=== PATIENT | female | born 2000 | race Caucasian/White ===

== ENCOUNTER → 2021-02-27 10:37 | Outpatient (CLI) | payer BC, SELFPAY ==
[2021-02-27 10:52] LABS: Coronavirus 19, PCR Not Detected (NotDetected); Influenza A, PCR Not Detected (NotDetected); Influenza B, PCR Not Detected (NotDetected)
== END ==
PROVIDERS: PCP Family Medicine; Visit Provider Nurse Practitioner
DX: Z20.822 Contact with and (suspected) exposure to COVID-19 (principal)
CPT/HCPCS: C9803; U0003; U0005

== ENCOUNTER → 2021-05-18 13:41 | Outpatient (CLI) | payer OTHER, SELFPAY | PROVIDERS: PCP Family Medicine; Visit Provider Nurse Practitioner | DX: Z20.822 Contact with and (suspected) exposure to COVID-19 (principal) | CPT/HCPCS: C9803; U0003; U0005 ==

== ENCOUNTER → 2021-07-13 13:31 | Outpatient (CLI) | payer OTHER, SELFPAY ==
[2021-07-12 17:40] LABS: Basophils # 0.1 K/mm3 (0-0.2); Basophils % 0.8 % (0.1-2.0); Eosinophils # 0.1 K/mm3 (0.0-0.4); Eosinophils % 1.5 % (0.1-12.0); Hematocrit 43.4 % (37.0-47.0); Hemoglobin 13.7 g/dL (12.2-16.2); Lymphocytes % 23.4 % (10-50); Mean Corpuscular HGB Conc 31.7 g/dL (31.8-35.4); Mean Corpuscular Hemoglobin 29.2 pg (27.0-31.2); Mean Platelet Volume 10.2 fl (7.4-10.4); Monocytes # 0.3 K/mm3 (0.1-1.0); Monocytes % 3.9 % (1.7-9.3); Neutrophils # 6.1 K/mm3 (1.8-7.8); Neutrophils % 70.3 % (37.0-80.0); Platelet Count 193 K/mm3 (142-424); Red Blood Count 4.72 M/mm3 (4.20-5.40); Red Cell Distribution Width 12.5 % (11.5-17.5); White Blood Count 8.7 K/mm3 (4.8-10.8)
[2021-07-12 17:43] LABS: Alanine Aminotransferase 21 U/L (12-78); Albumin Level 4.9 g/dl (3.5-5.0); Alkaline Phosphatase 89 U/L (38-126); Amylase 74 U/L (30-110); Anion Gap 14.2 mEq/L (5-15); Aspartate Amino Transferase 31 U/L (14-36); Bilirubin,Total 0.5 mg/dl (0.2-1.3); Blood Urea Nitrogen 12 mg/dl (7-17); Calcium 9.4 mg/dl (8.4-10.2); Carbon Dioxide 25 mmol/L (22.0-30.0); Chloride 101 mmol/L (98-107); Chol/HDL Ratio 2.5 (1-3.5); Cholesterol 151 mg/dl (140-200); Estimated Glomerular Filt Rate 126 ml/min (>60); GFR (African American) 153 ML/MIN (>60); Globulin 2.5 g/dL (1.3-3.2); Glucose 74 mg/dl (74-100); HDL Cholesterol 60 mg/dl (40-60); Lipase 76 U/L (23-300); Potassium 4.2 mmoL/L (3.5-5.1); Sodium 136 mmol/L (136-145); Total Protein,Serum 7.4 g/dl (6.3-8.2); Triglycerides 100 mg/dl (30-150); VLDL Cholesterol 20 mg/dL (0-40)
[2021-07-12 17:54] LABS: Direct LDL Cholesterol 66.91 mg/dL (100-129)
[2021-07-12 17:59] LABS: 25-OH Vitamin D, Total 18.1 ng/mL (30-100)
[2021-07-12 18:06] LABS: HCG,Quantitative < 2 mIU/ml (0-5.42)
[2021-07-12 18:14] LABS: Thyroid Stimulating Hormone 0.45 uIU/mL (0.465-4.68)
== END ==
PROVIDERS: Visit Provider Physician Assistant
DX: R14.0 Abdominal distension (gaseous) (principal); R10.9 Unspecified abdominal pain; R10.13 Epigastric pain; E55.9 Vitamin D deficiency, unspecified
CPT/HCPCS: 80053; 80061; 82150; 82306; 83690; 84443; 84702; 85025

== ENCOUNTER → 2021-07-14 08:48 | Outpatient (CLI) | payer OTHER, SELFPAY ==
--- NOTE | 2021-07-14 08:49 | US_ITS ---
FINAL REPORT CLINICAL HISTORY: ruq pain FINDINGS: Sonographic images of the right upper quadrant were obtained. The pancreas is partially obscured.The liver has an unremarkable appearance. There is sludge within the gallbladder without evidence of gallstones. There is no evidence of biliary ductal dilatation.The common duct measures 3 mm. Limited images of the right kidney are unremarkable. IMPRESSION: Sludge within the gallbladder without evidence of gallstones. Reviewed, Interpreted and Dictated by Ned Fields III, MD Transcribed by Nara Bentley Authenticated by Ned Fields III, MD on 07/14/2021 09:54:11 AM [facility]
== END ==
PROVIDERS: PCP Physician Assistant; Visit Provider Physician Assistant
DX: R10.11 Right upper quadrant pain (principal)
CPT/HCPCS: 76705

== ENCOUNTER → 2021-07-27 10:16 | Outpatient (CLI) | payer OTHER, SELFPAY ==
--- NOTE | 2021-07-27 10:21 | NM_ITS ---
FINAL REPORT CLINICAL HISTORY: Sludge within the gallbladder 10:30 am 8.13mci Tc Choletec injected into lt ant pt drank ensure at 11:40 am no pain after drinking ensure FINDINGS: HEPATOBILIARY SCAN WITH ENSURE Following intravenous administration of approximately 8.13 of technetium Choletec, multiple scintigraphic images were obtained. The hepatic parenchymal phase shows homogeneous distribution of the tracer throughout the liver. Prompt appearance of tracer is noted in the intrahepatic and extrahepatic biliary systems. The gallbladder visualizes normal. Biliary to bowel transit is within normal limits. Following ingestion of 8 oz of Ensure, gallbladder ejection fraction is estimated to be 67 %. IMPRESSION: Normal gallbladder ejection fraction of 67 %. Reviewed, Interpreted and Dictated by Roman Al MD Transcribed by Abiodun Cope Authenticated by Roman Al MD on 07/27/2021 02:17:24 PM [facility]
== END ==
PROVIDERS: PCP Physician Assistant; Visit Provider Physician Assistant
DX: K82.8 Other specified diseases of gallbladder (principal)
CPT/HCPCS: 78227; A9537

== ENCOUNTER 2021-07-28 05:48 | Emergency (ER) | payer OTHER, SELFPAY ==
[2021-07-28] VITALS (7 sets, daily range): BP systolic 104–120; BP diastolic 62–78; PULSE 71–92; RESP 16–18; TEMP 36.6; O2SAT 98–100; BMI 24.0
--- NOTE | 2021-07-28 05:57 | ECG_ITS ---
APPROVED REPORT Exam: Resting ECG HR:79 bpm ECG Measurements Heart Rate 79 AXES IL 147 P 71 QRSd 78 QRS 84 QT 358 T 54 QTc 393 Conclusion SINUS RHYTHM NORMAL ECG UNCONFIRMED REPORT Electronically signed by : Kade Lord MD 07/28/2021 19:37:25
--- NOTE | 2021-07-28 06:04 | PC.NURSE ---
roll forming supervisor gave report to this RN. S, Call RN states pt had a syncopal episode on 2nd floor in the hallway. This was witnessed by another er registrar, Laila. @ 0930 her FS was 105 and BP 108/65, HR 83, 99% room air. Witness and pt deny fall, and state she was assisted to the ground.
--- NOTE | 2021-07-28 06:13 | XR_ITS ---
FINAL REPORT CLINICAL HISTORY: syncope FINDINGS: TWO VIEWS OF THE CHEST The heart is normal in size. The mediastinum is unremarkable. The lungs are clear. There is no pneumothorax. IMPRESSION: No acute cardiopulmonary process. Reviewed, Interpreted and Dictated by Roman Al MD Transcribed by Marsha Nation Authenticated by Roman Al MD on 07/28/2021 08:40:58 AM [facility]
--- NOTE | 2021-07-28 06:19 | CT_ITS ---
FINAL REPORT TECHNIQUE: Axial CT images were performed through the head. Coronal reformatted images were submitted. This study was performed with techniques to keep radiation doses as low as reasonably achievable (ALARA). Individualized dose reduction techniques using automated exposure control or adjustment of mA and/or kV according to the patient's size were employed. CLINICAL HISTORY: pt was drawing a pt's blood and started seeing spots and then passed out FINDINGS: The ventricles are normal in size. There is no evidence of hemorrhage. There is no mass or edema identified. There is no abnormal extra-axial fluid seen. There is a retention cyst or polyp in the left maxillary sinus. There is minimal mucosal periosteal thickening in the right maxillary sinus. IMPRESSION: No acute intracranial process. Reviewed, Interpreted and Dictated by Roman Al MD Transcribed by Marsha Nation Authenticated by Roman Al MD on 07/28/2021 08:40:59 AM [facility]
--- NOTE | 2021-07-28 06:23 | PC.NURSE ---
obtaining orthostatic bp
[2021-07-28 06:29] LABS: Microscopic, Urine URINE MICROSCOPIC (MICROSCOPIC)
[2021-07-28 06:33] LABS: Basophils # 0.1 K/mm3 (0-0.2); Basophils % 1.2 % (0.1-2.0); Eosinophils # 0.2 K/mm3 (0.0-0.4); Eosinophils % 2.3 % (0.1-12.0); Hematocrit 44.6 % (37.0-47.0); Hemoglobin 14.7 g/dL (12.2-16.2); Lymphocytes # 2.4 K/mm3 (0.7-4.5); Lymphocytes % 27.1 % (10-50); Mean Corpuscular HGB Conc 32.9 g/dL (31.8-35.4); Mean Corpuscular Hemoglobin 29.7 pg (27.0-31.2); Mean Corpuscular Volume 90.1 fl (81-99); Mean Platelet Volume 9.6 fl (7.4-10.4); Monocytes # 0.5 K/mm3 (0.1-1.0); Monocytes % 5.4 % (1.7-9.3); Neutrophils # 5.7 K/mm3 (1.8-7.8); Platelet Count 261 K/mm3 (142-424); Red Blood Count 4.95 M/mm3 (4.20-5.40); Red Cell Distribution Width 12.5 % (11.5-17.5)
[2021-07-28 06:45] LABS: Appearance,Urine SL CLOUDY (Clear); Blood, Urine TRACE-I (Negative); Color,Urine DK YELLOW (Yellow); Glucose,Urine (UA) Negative (Negative); Ketones,Urine TRACE (Negative); Leukocyte Esterase,Urine Negative (Negative); Nitrate,Urine Negative (Negative); PH,Urine 5.5 (5.0-8.5); Protein,Urine TRACE (Negative); Specific Gravity, Urine >= 1.030 (1.005-1.030); Urobilinogen,Urine 0.2 EU/dl (0.2)
[2021-07-28 06:49] LABS: Alanine Aminotransferase 13 U/L (12-78); Albumin Level 4.6 g/dl (3.5-5.0); Albumin/Globulin Ratio 1.7 (1.1-1.8); Alkaline Phosphatase 75 U/L (38-126); Anion Gap 11.7 mEq/L (5-15); Aspartate Amino Transferase 23 U/L (14-36); Bilirubin,Total 0.7 mg/dl (0.2-1.3); Blood Urea Nitrogen 8 mg/dl (7-17); Calcium 9.3 mg/dl (8.4-10.2); Carbon Dioxide 27 mmol/L (22.0-30.0); Chloride 103 mmol/L (98-107); Creatinine Clearance Estimated 112 mL/min (50-200); Estimated Glomerular Filt Rate 91 ml/min (>60); GFR (African American) 110 ML/MIN (>60); Globulin 2.7 g/dL (1.3-3.2); Glucose 130 mg/dl (74-100); Potassium 3.7 mmoL/L (3.5-5.1); Sodium 138 mmol/L (136-145); Total Protein,Serum 7.3 g/dl (6.3-8.2)
[2021-07-28 06:54] LABS: Bilirubin,Urine Negative (Negative)
[2021-07-28 06:55] LABS: C-Reactive Protein 0.3 mg/L (0-4)
[2021-07-28 07:04] LABS: HCG Qualitative, Serum Negative (Negative)
[2021-07-28 07:07] LABS: RBC,Urine Occasional #/hpf (0-3)
[2021-07-28 07:08] LABS: Bacteria,Urine 2+ /lpf
--- NOTE | 2021-07-28 07:16 | HMH.EDSYNC ---
ED Disposition Clinical Impression: Vasovagal syncope Disposition: Home, Self-Care Condition on Discharge: Good Instructions: DI for Syncope in Adults (Fainting) Additional Instructions: fluids and see pcp for follow up Referrals: Shanika Brice PA [Primary Care Provider] - - Critical Care Critical Care Time: No Attestation: On 07/28/21, the high probability of a clinically significant, sudden or life threatening deterioration of the following system(s) required my full and direct attention, intervention and personal management. The time I documented below is in addition to time spent performing reported procedures but includes the following listed in this critical care notation. Medical Decision Making - Medical Records Medical records reviewed: Yes: I reviewed the patient's medical records. - Dale Inquiry Pt receiving controlled substance: No Vital Signs: 07/28/21 06:04 07/28/21 06:22 07/28/21 06:30 Temperature 97.9 F Temperature Source Oral Pulse Rate 71 Pulse Rate [Apical] 80 Pulse Rate [Orthostatic Lying] 80 Pulse Rate [Orthostatic Sitting] 79 Pulse Rate [Orthostatic Standing] 92 H Respiratory Rate 18 Blood Pressure 104/67 L Blood Pressure [Orthostatic Lying] 112/62 Blood Pressure [Orthostatic Sitting] 119/78 Blood Pressure [Orthostatic Standing] 116/73 Blood Pressure [Right Arm] 120/75 Blood Pressure Mean 77 Blood Pressure Mean [Right Arm] 90 Blood Pressure Source [Right Arm] Automatic Cuff Blood Pressure Position Blood Pressure Position [Right Arm] Sitting 02 Sat by Pulse Oximetry 99 100 Oxygen Delivery Method Room Air Room Air 07/28/21 07:36 Temperature Temperature Source Pulse Rate 86 Pulse Rate [Apical] Pulse Rate [Orthostatic Lying] Pulse Rate [Orthostatic Sitting] Pulse Rate [Orthostatic Standing] Respiratory Rate 16 Blood Pressure 106/74 L Blood Pressure [Orthostatic Lying] Blood Pressure [Orthostatic Sitting] Blood Pressure [Orthostatic Standing] Blood Pressure [Right Arm] Blood Pressure Mean Blood Pressure Mean [Right Arm] Blood Pressure Source [Right Arm] Blood Pressure Position Sitting Blood Pressure Position [Right Arm] 02 Sat by Pulse Oximetry 98 Oxygen Delivery Method Room Air - Lab Data Lab results reviewed: Yes: I reviewed the patient's lab results. Lab Results 07/28/21 06:00: Urine Color Dk yellow, Urine Appearance Sl cloudy, Urine pH 5.5, Ur Specific [place] >= 1.030, Urine Protein Trace, Urine Glucose (UA) Negative, Urine Ketones Trace, Urine Blood Trace-i, Urine Nitrate Negative, Urine Bilirubin Negative, Urine Urobilinogen 0.2, Ur Leukocyte Esterase Negative, Urine RBC Occasional, Urine WBC 3-5, Ur Squamous Epith Cells 3-5, Urine Bacteria 2+ 07/28/21 06:00: WBC 9.0, RBC 4.95, Hgb 14.7, Hct 44.6, MCV 90.1, MCH 29.7, MCHC 32.9, RDW 12.5, Plt Count 261, MPV 9.6, Neut % (Auto) 64.0, Lymph % (Auto) 27.1, [place] % (Auto) 5.4, Eos % (Auto) 2.3, Baso % (Auto) 1.2, Neut # (Auto) 5.7, Lymph # (Auto) 2.4, [place] # (Auto) 0.5, Eos # (Auto) 0.2, Baso # (Auto) 0.1 07/28/21 06:00: Sodium 138, Potassium 3.7, Chloride 103, Carbon Dioxide 27, Anion Gap 11.7, BUN 8, Creatinine 0.80, Estimated Creat Clear 112, Estimated GFR 91, Est GFR ( Amer) 110, Glucose 130 H, Calcium 9.3, Total Bilirubin 0.7, AST 23, ALT 13, Alkaline Phosphatase 75, Troponin I < 0.01, C-Reactive Protein 0.3, Total Protein 7.3, Albumin 4.6, Globulin 2.7, Albumin/Globulin Ratio 1.7 07/28/21 06:00: Serum HCG, Qual Negative Result diagrams: 07/28/21 06:00 07/28/21 06:00 Orders (Tests/Meds): ED MEDICATIONS Discontinued Medications Generic Name Dose Route Start Last Admin Trade Name Elverq PRN Reason Stop Dose Admin Acetaminophen 650 mg 07/28/21 06:20 Acetaminophen 325mg Tab PO 07/28/21 06:21 ONCE ONE Sodium Chloride 1,000 mls @ 999 mls/hr 07/28/21 06:15 07/28/21 06:17 Sod Chlor 0.9% 1000ml Bag IV 07/28/21 07:15 999 mls/
--- NOTE | 2021-07-28 07:17 | PC.NURSE ---
pt to ct
[2021-07-28 07:35] LABS: Troponin I < 0.01 ng/ml (0.00-0.034)
[2021-07-28 07:38] LABS: Procalcitonin 0.047 ng/mL (0.0-2.0)
[2021-07-28 07:39] LABS: T4 (Thyroxine) 10.1 ug/dl (5.53-11.0)
[2021-07-28 07:52] LABS: Thyroid Stimulating Hormone 0.17 uIU/mL (0.465-4.68)
== END 2021-07-28 08:51 | disposition home or self-care (01) ==
PROVIDERS: Emergency Provider Emergency Medicine; PCP Physician Assistant
DX: R55 Syncope and collapse (principal)
CPT/HCPCS: 70450; 71046; 80053; 81001; 84145; 84436; 84443; 84484; 84703; 85025; 86140; 87086; 93005; 96365; 99284

== ENCOUNTER → 2021-09-18 08:07 | Outpatient (CLI) | payer OTHER, SELFPAY ==
[2021-09-18 08:25] LABS: Urine Pregnancy, HCG Qual. Negative (Negative)
== END ==
PROVIDERS: Visit Provider Internal Medicine
DX: Z01.818 Encounter for other preprocedural examination (principal); Z11.52 Encounter for screening for COVID-19
CPT/HCPCS: 81025; C9803; U0003; U0005

== ENCOUNTER 2021-09-20 08:52 | Day surgery (SDC) | payer OTHER, SELFPAY ==
[2021-09-18 13:01] VITALS: BMI 26.5
[2021-09-20 09:09] VITALS: BP 124/62; PULSE 73; RESP 18; TEMP 36.7; O2SAT 100
--- NOTE | 2021-09-20 09:23 | P.PN_ITS ---
[facility] Anesthesia Checklist - Patient Identification Patient Identification: Arm Band - Structural Data Admitted From: Home Planned Operative Procedure/s: EGD/Colonoscopy Consent for Planned Operative Procedure(s) Verified: Yes - NPO Status Verified Time NPO: 06:00 (Prep) - Airway Assessment C-Spine Mobility Assessed: Yes TMJ Mobility Assessed: Yes Dentition: Good Dentition - Neurological Assessment Level of Consciousness: Awake Hx Seizures: No Numbness or tingling in extremities: No - Anesthesia Plan Anesthesia Risk discussed: Yes Anesthesia Plan: Verified ASA Class: I Anesthesia Type: MAC [facility] History I have reviewed the patient's past medical history: Yes Medical History: Reports:: Asthma, Gastroesophageal Reflux Disease(GERD) Denies:: Cancer, Diabetes Mellitus Type 1, Diabetes Mellitus Type 2, Internal Pacemaker, MRSA, Seizures *Have you ever received a pneumonia vaccine?: No *Have you received a flu vaccine this season?: No Anesthesia experience/problems:: None Other Surgeries: Yes: No Previous Surgery. No: Pacemaker Amputation: No Fractures: No - *Social History Last grade of school completed: High school graduate Smoking Status: Current every day smoker Tobacco Type: e-cigarettes Alcohol Intake: never Substance Use Type: denies use *Occupational Status:: unemployed Housing: house Household Members: family *Travel in the last 8 weeks: None Family Hx:: Non-contributory
[2021-09-20 09:57] VITALS: O2SAT 100
[2021-09-20 10:22] VITALS: BP 103/54; PULSE 70; RESP 18; TEMP 36.4; O2SAT 97
[2021-09-20 10:32] VITALS: BP 98/53; PULSE 77; RESP 16; O2SAT 98
--- NOTE | 2021-09-20 10:32 | P.PCN_ITS ---
- Procedure: Date: 09/20/21 Patient Date of :: 2000 Procedure Performed:: EGD Indications:: The patient is a 21 year old who is here for EGD evaluation for RUQ abdominal pain. Her abdominal pain is intermittent and can radiate into right mid back. She has a gallbladder ultrsound that showed gallbladder sludge and HIDA scan that was normal with asymptomatic HIDA. She has abdominal bloating. Performing Provider:: Brigido Patterson MD Referring Provider:: Shanika Brice APRN Sedation:: See RN notes Procedure:: The gastroscope was gently passed through the incisoral orifice into the oral cavity and under direct visualization the esophagus was intubated. The endoscope was passed down the esophagus, through the stomach, and into the duodenum. Co yamilet, texture, mucosa, and anatomy of the esophagus, stomach, and duodenum were carefully examined with the scope. Findings:: Oropharynx: normal Esophagus: normal EG Junction: intact at 40 cm Cardia: normal Fundus: Mild gastritis. Biopsies obtained Body: Mild gastritis. Biopsies obtained. Bilious fluid Antrum: normal Duodenal bulb: normal. Biopsies obtained to evaluate for celiac disease Duodenum (second and third portion): normal. Biopsies obtained to evaluate for celiac disease Recommendations:: Await pathology results Can try FDGard 1-2 capsule before meals Can try prilosec 20 mg once daily x 4 weeks Will arrange follow up appointment to be seen in GI clinic Complications:: None Estimated blood obtained (mL): 0
[2021-09-20 10:42] VITALS: BP 117/62; PULSE 87; RESP 16; O2SAT 99
[2021-09-20 11:00] VITALS: BP 101/64; PULSE 84; RESP 18; TEMP 36.4; O2SAT 99
--- NOTE | 2021-09-20 11:23 | HMH.SCOPE ---
- Procedure: Date: 09/20/21 Patient Date of :: 2000 Procedure Performed:: Colonoscopy Indications:: The patient is a 21 year old who has had RUQ abdominal pain, constipation, bloating symptoms. Performing Provider:: Brigido Patterson MD Referring Provider:: Shanika Brice APRN Sedation:: See RN notes Procedure:: After placing the patient in the left lateral decubitus position, the colonoscopy was gently inserted into the rectum and under direct visualization advanced to the cecum which was identified by transillumination in the right lower quadrant, identification of the ileocecal valve, appendiceal orifice, and cecal strap. Color, texture, mucosa, and anatomy of the colon were carefully examined with the scope. Findings:: Anal canal: normal Rectum: normal Sigmoid colon: normal without polyps or inflammatory changes Descending colon: normal without polyps or inflammatory changes Splenic flexure: normal Transverse colon: normal without polyps or inflammatory changes Hepatic flexure: normal Ascending colon: normal without polyps or inflammatory changes Cecum: normal Terminal ileum: normal Recommendations:: Continue miralax and metamucil Will make follow up to be seen in GI office Complications:: None Estimated blood obtained (mL): 0
== END 2021-09-20 11:00 | disposition home or self-care (01) ==
LOC: OUTP 08:54
PROVIDERS: PCP Physician Assistant; Visit Provider Internal Medicine
PROC: 0DJ08ZZ Inspection of Upper Intestinal Tract, Via Natural or Artificial Opening Endoscopic (ICD-10-PCS; CPT 43235; principal; 2021-09-20 10:00)
DX: K29.60 Other gastritis without bleeding (principal); K59.00 Constipation, unspecified; R10.11 Right upper quadrant pain; R14.0 Abdominal distension (gaseous); J45.909 Unspecified asthma, uncomplicated; K21.9 Gastro-esophageal reflux disease without esophagitis; Z72.0 Tobacco use
CPT/HCPCS: 43239; 45378; J2704

== ENCOUNTER 2023-05-29 13:44 | Outpatient (CLI) | payer OTHER, SELFPAY ==
[2023-05-29 14:47] LABS: Basophils % 0.3 % (0.1-2.0); Eosinophils # 0.2 K/mm3 (0.0-0.4); Eosinophils % 2.8 % (0.1-12.0); Hematocrit 43.1 % (37.0-47.0); Hemoglobin 14.2 g/dL (12.2-16.2); Lymphocytes # 1.7 K/mm3 (0.7-4.5); Lymphocytes % 27.4 % (10-50); Mean Corpuscular Hemoglobin 28.8 pg (27.0-31.2); Mean Corpuscular Volume 87.3 fl (81-99); Mean Platelet Volume 10.1 fl (7.4-10.4); Monocytes # 0.4 K/mm3 (0.1-1.0); Monocytes % 6.3 % (1.7-9.3); Neutrophils # 3.8 K/mm3 (1.8-7.8); Neutrophils % 63.1 % (37.0-80.0); Platelet Count 183 K/mm3 (142-424); Red Blood Count 4.94 M/mm3 (4.20-5.40); Red Cell Distribution Width 12.6 % (11.5-17.5); White Blood Count 6.1 K/mm3 (4.8-10.8)
[2023-05-29 15:32] LABS: 25-OH Vitamin D, Total 39.8 ng/mL (30-100)
[2023-05-29 19:55] LABS: Chloride 105 mmol/L (98-107); Potassium 4.4 mmoL/L (3.5-5.1); Sodium 137 mmol/L (136-145)
[2023-05-29 19:57] LABS: Blood Urea Nitrogen 14 mg/dl (7-17); Estimated Glomerular Filt Rate 89 ml/min (>60); GFR (African American) 108 ML/MIN (>60)
[2023-05-29 19:58] LABS: Alanine Aminotransferase 19 U/L (12-78); Albumin Level 4.5 g/dl (3.5-5.0); Albumin/Globulin Ratio 1.9 (1.1-1.8); Alkaline Phosphatase 67 U/L (38-126); Anion Gap 11.4 mEq/L (5-15); Aspartate Amino Transferase 27 U/L (14-36); Bilirubin,Total 0.8 mg/dl (0.2-1.3); Calcium 9.4 mg/dl (8.4-10.2); Carbon Dioxide 25 mmol/L (22.0-30.0); Globulin 2.4 g/dL (1.3-3.2); Glucose 89 mg/dl (74-100); Total Protein,Serum 6.9 g/dl (6.3-8.2)
[2023-05-29 20:29] LABS: Thyroid Stimulating Hormone < 0.02 uIU/mL (0.465-4.68)
[2023-05-29 21:26] LABS: Vitamin B12 764 pg/mL (239-931)
[2023-06-04 06:57] LABS: Thyroid Peroxidase Antibodies 27
[2023-06-04 06:58] LABS: Thyroglobulin Level <1.0
== END 2023-05-29 23:59 ==
LOC: LAB.DROPOF 13:45
PROVIDERS: PCP Physician Assistant; Visit Provider Physician Assistant
DX: R53.83 Other fatigue (principal); R79.89 Other specified abnormal findings of blood chemistry
CPT/HCPCS: 80053; 82306; 82607; 84439; 84443; 85025; 86376; 86800

== ENCOUNTER 2023-06-05 09:09 | Outpatient (CLI) | payer OTHER, SELFPAY | END 2023-06-05 23:59 | LOC: LAB.DROPOF 09:09 | PROVIDERS: PCP Physician Assistant; Visit Provider Physician Assistant | DX: R53.83 Other fatigue (principal) ==

== ENCOUNTER 2023-08-08 13:11 | Outpatient (CLI) | payer OTHER, SELFPAY ==
[2023-08-08 14:51] LABS: Free T4 (Free Thyroxine) 1.05 ng/dl (0.78-2.19)
[2023-08-08 15:05] LABS: Thyroid Stimulating Hormone 0.12 uIU/mL (0.465-4.68)
== END 2023-08-08 23:59 ==
LOC: LAB.DROPOF 13:12
PROVIDERS: PCP Physician Assistant; Visit Provider Physician Assistant
DX: R79.89 Other specified abnormal findings of blood chemistry (principal)
CPT/HCPCS: 84439; 84443

== ENCOUNTER 2023-10-22 16:07 | Outpatient (CLI) | payer OTHER, SELFPAY ==
[2023-10-22 18:21] LABS: Free T4 (Free Thyroxine) 1.13 ng/dl (0.78-2.19)
== END 2023-10-22 23:59 | disposition home or self-care (01) ==
LOC: LAB 16:07
PROVIDERS: PCP Physician Assistant; Visit Provider Physician Assistant
DX: R79.89 Other specified abnormal findings of blood chemistry (principal)
CPT/HCPCS: 36415; 84439; 84443

== ENCOUNTER 2024-02-06 15:39 | Outpatient (CLI) | payer OTHER, SELFPAY ==
[2024-02-06 16:46] LABS: Free Thyroxine Index 3.7 ug/dL (5.93-13.13); T4 (Thyroxine) 11.6 ug/dl (5.53-11.0); Triiodothryronine (T3) Uptake 32 % (23.5-40.5)
[2024-02-06 16:47] LABS: T4 (Thyroxine) 10.8 ug/dl (5.53-11.0)
[2024-02-06 17:00] LABS: Thyroid Stimulating Hormone 0.72 uIU/mL (0.465-4.68)
[2024-02-06 17:01] LABS: Thyroid Stimulating Hormone 0.75 uIU/mL (0.465-4.68)
[2024-02-08 08:19] LABS: Triiodothyronine (T3) Total 138 ng/dL (71-180)
== END 2024-02-06 23:59 | disposition home or self-care (01) ==
LOC: LAB 15:40
PROVIDERS: PCP Physician Assistant; Visit Provider Nurse Practitioner
DX: E03.9 Hypothyroidism, unspecified (principal)
CPT/HCPCS: 36415; 84436; 84443; 84479; 84480